=== PATIENT | female | born 1950 | race Two or more races ===

== ENCOUNTER 2018-07-31 08:17 | Outpatient (CLI) | payer OTHER | END 2018-07-31 08:29 | disposition home or self-care (01) | LOC: SONOGRAMA 08:17 | DX: R22.2 Localized swelling, mass and lump, trunk (principal) ==

== ENCOUNTER 2018-08-28 09:35 | Outpatient (CLI) | payer OTHER | END 2018-08-28 09:41 | disposition home or self-care (01) | LOC: SONOGRAMA 09:35 | DX: R22.2 Localized swelling, mass and lump, trunk (principal) ==